=== PATIENT | male | born 1965 | race Caucasian/White ===

== ENCOUNTER 2024-12-12 08:47 | Emergency (ER) | payer MEDICAID, OTHER ==
[~2024-12-12] VITALS: Ht 162.6 cm; Wt 84.1 kg
[~2024-12-12 08:47] MED LIST: ALBU18HF12 IH; LEVE-71 PO
[2024-12-12 08:59] VITALS: TEMP 98.8
[2024-12-12 09:09] LABS: COVID AG,FIA SOURCE NASAL SWAB
[2024-12-12 09:27] LABS: INFLUENZA TYPE A NEGATIVE FOR TYPE A (NEGATIVE); INFLUENZA TYPE B NEGATIVE FOR TYPE B (NEGATIVE); SARS-COV2 (COVID) ANTIGEN,FIA Negative (Negative)
[2024-12-12] MEDS ORDERED: 0.9% SODIUM CHLORIDE 5 ML NEB SOLUTION NEB ONE (10:19)
[2024-12-12 10:30] VITALS: PULSE 90; RESP 20; O2SAT 96
[2024-12-12] MEDS: ALBUTEROL SULFATE 2.5 MG/0.5 ML NEB SOLUTION NEB ONE (10:30)
[2024-12-12] MEDS: IPRATROPIUM BROMIDE 0.5 MG/2.5 ML NEB SOLUTION NEB ONE (10:30)
[2024-12-12 10:45] VITALS: PULSE 90; RESP 20; O2SAT 100
[2024-12-12 10:47] LABS: BASOPHILS % (AUTO) 0.1 % (0.0-2.0); EOSINOPHILS % (AUTO) 0.1 % (1.0-6.0); HEMATOCRIT 49.1 % (41-53); HEMOGLOBIN 16.7 g/dL (13.5-17.5); LYMPHOCYTES # (AUTO) 1.1 K/uL (1.0-4.8); LYMPHOCYTES % (AUTO) 10.7 % (22.0-44.0); MEAN CORPUSCULAR HEMOGLOBIN 30.9 pg (26.0-34.0); MEAN CORPUSCULAR HGB CONC 34.1 G/dL (31.0-37.0); MEAN CORPUSCULAR VOLUME 91 fL (80-100); MONOCYTES # (AUTO) 0.8 K/uL (0.1-1.0); MONOCYTES % (AUTO) 7.7 % (2.0-9.0); NEUTROPHILS # (AUTO) 8.6 K/uL (1.8-7.7); NEUTROPHILS % (AUTO) 81.4 % (40.0-70.0); PLATELET COUNT (AUTO) 170 K/uL (150-450); RED BLOOD CELL COUNT(AUTO) 5.41 MIL/uL (4.50-5.90); WHITE BLOOD COUNT (AUTO) 10.6 K/uL (4.5-11.0)
[2024-12-12 10:49] LABS: ANION GAP 11 mmol/L (8-16); CALCIUM, TOTAL 8.8 mg/dL (8.8-10.5); CARBON DIOXIDE 26 mmol/L (22-29); CHLORIDE 102 mmol/L (98-107); CREATININE 0.91 mg/dL (0.60-1.30); GLOMERULAR FILTR. RATE CALC > 60 mL/min (>60); GLUCOSE,RANDOM 133 mg/dL (70-110); POTASSIUM 3.8 mmol/L (3.5-5.1); SODIUM SERUM 139 mmol/L (136-145); UREA NITROGEN, BLOOD 18 mg/dL (7-18)
[2024-12-12 10:58] LABS: LACTIC ACID 1.4 mmol/L (0.4-2.0)
[2024-12-12 11:00] LABS: TROPONIN I-HIGH SENSITIVITY 4 ng/L (<76)
[2024-12-12 11:04] LABS: B-TYPE NATRIURETIC PEPTIDE 7 pg/mL (0-100)
[2024-12-12] MEDS ORDERED: AZIT250T9 PO (13:58)
[2024-12-12] MEDS ORDERED: BENZ-227 PO (13:58)
[2024-12-12] MEDS ORDERED: ALBU18HF12 IH (14:00)
[2024-12-12] MEDS ORDERED: PRED-554 PO (14:00)
[2024-12-12 15:35] VITALS: BP 141/83; PULSE 95; RESP 18; O2SAT 98
== END 2024-12-12 15:41 | disposition home or self-care (01) ==
LOC: EMS 08:48
DX: J18.0 Bronchopneumonia, unspecified organism (principal); J45.909 Unspecified asthma, uncomplicated; Z88.6 Allergy status to analgesic agent; Z79.899 Other long term (current) drug therapy; Z20.822 Contact with and (suspected) exposure to COVID-19
CPT/HCPCS: 71046; 80048; 83605; 83880; 84484; 85025; 87804; 93005; 94640; 99285; 36415-L1; 36415-TC; J7613